=== PATIENT | female | born 1935 | race Caucasian/White ===

== ENCOUNTER 2021-04-22 21:01 | Emergency (ER) | payer OTHER ==
[~2021-04-22] VITALS: Ht 154.9 cm; Wt 66.7 kg
--- NOTE | 2021-04-22 21:52 | NUR ---
JULIO CÉSAR [phone]
[2021-04-23] MEDS ORDERED: HYDROCODONE/APAP 5/325MG TABLET ONE ×2 (00:21→05:54)
[2021-04-23] MEDS: HYDROCODONE/APAP 5/325MG TABLET PO ONE ×2 (01:00→06:34)
[2021-04-23] MEDS ORDERED: IBUP-1957 PO (03:59)
[2021-04-23] MEDS ORDERED: HYDR-4303 PO (03:59)
--- NOTE | 2021-04-23 05:00 | NUR ---
CALLED JULIO CÉSAR DAUGHTER TO PICK PATIENT UP, PER JULIO CÉSAR, SHE WILL CALL HER BROTHER
--- NOTE | 2021-04-23 06:15 | NUR ---
JANET ABDI CELL [phone]
--- NOTE | 2021-04-23 06:31 | NUR ---
[facility] TO HOME; ETA 45-60MINS
--- NOTE | 2021-04-23 08:20 | NUR ---
Patient discharged in stable condition. Written and verbal after care instructions given.
[2021-04-23 08:48] VITALS: BP 127/84
== END 2021-04-23 08:48 | disposition home or self-care (01) ==
LOC: ER 21:06
DX: S70.01XA Contusion of right hip, initial encounter (principal); I10 Essential (primary) hypertension; J44.9 Chronic obstructive pulmonary disease, unspecified; Z88.2 Allergy status to sulfonamides; Z79.899 Other long term (current) drug therapy; W18.09XA Striking against other object with subsequent fall, initial encounter; Y93.89 Activity, other specified; Y92.89 Other specified places as the place of occurrence of the external cause; Y99.8 Other external cause status
CPT/HCPCS: 73502; 73700-TC